=== PATIENT | male | born 1975 | race Caucasian/White ===

== ENCOUNTER 2023-10-05 20:37 | Emergency (ER) | payer OTHER ==
[~2023-10-05] VITALS: Ht 175.3 cm; Wt 95.0 kg
[2023-10-05 21:03] VITALS: BP 159/98; PULSE 79; RESP 16; TEMP 98.3; O2SAT 98
[2023-10-06] MEDS ORDERED: CHLO10CA7 PO (01:24)
[2023-10-06] MEDS: ChlordiazePOXIDE HCL 25 MG CAPSULE PO ONE (01:26)
== END 2023-10-06 02:34 | disposition left against medical advice (07) ==
LOC: EMS 20:37
DX: F10.129 Alcohol abuse with intoxication, unspecified (principal); Z87.891 Personal history of nicotine dependence; Z98.890 Other specified postprocedural states; Y90.9 Presence of alcohol in blood, level not specified
CPT/HCPCS: 99285; Z7502; Z7610